=== PATIENT | male | born 1990 | race African-American/Black ===

== ENCOUNTER 2016-11-04 08:01 | Emergency (ER) | payer OTHER ==
[~2016-11-04] VITALS: Ht 182.9 cm; Wt 90.7 kg
[2016-11-04] MEDS ORDERED: ACETAMINOPHEN 325 MG TAB As Ordered ONE (08:43)
[2016-11-04] MEDS ORDERED: IBUPROFEN 800 MG TAB As Ordered ONE (08:44)
[2016-11-04] MEDS ORDERED: ACETAMINOPHEN 325 MG TAB PO ONE (08:45)
[2016-11-04] MEDS ORDERED: IBUPROFEN 800 MG TAB PO ONE (08:45)
[2016-11-04 09:42] VITALS: BP 146/67
[2016-11-04] MEDS ORDERED: AUGM875T27 PO (10:04)
[2016-11-04] MEDS ORDERED: AUGMENTIN 875 MG TAB PO ONE (10:15)
== END 2016-11-04 10:16 | disposition home or self-care (01) ==
LOC: M ED 08:32
DX: J02.9 Acute pharyngitis, unspecified (principal); R50.9 Fever, unspecified